=== PATIENT | male | born 1965 | race Caucasian/White ===

== ENCOUNTER 2021-06-30 06:33 | Day surgery (SDC) | payer OTHER ==
[2021-06-30] MEDS ORDERED: Lidocaine 2% Jelly 30 ML Tube ONE (06:36)
[2021-06-30] MEDS ORDERED: Bupivacaine 0.5% 50 ML MDV ONE (06:37)
[2021-06-30] MEDS ORDERED: Lidocaine 1% with EPINEPHrine 1:100,000 50 ML MDV ONE (06:37)
[2021-06-30] MEDS ORDERED: Sodium Chloride 0.9% 1,000 ML IV SCH (07:00)
[2021-06-30] MEDS ORDERED: fentaNYL 100 MCG/2 ML SDV ONE (07:26)
[2021-06-30] MEDS ORDERED: Propofol 200 MG/20 ML SDV ONE (07:26)
[2021-06-30] MEDS ORDERED: Midazolam 1 MG/ML 2 ML SDV ONE (07:26)
[2021-06-30] MEDS ORDERED: cefOXitin 2 GM in Sodium Chloride 0.9% 50 ML IV ONE (07:30)
[2021-06-30] MEDS ORDERED: metroNIDAZOLE/Normal Saline 500 MG in Premix Bag 1 BAG IV ONE (07:30)
== END 2021-06-30 09:17 | disposition home or self-care (01) ==
LOC: JP.SDS 06:33
PROVIDERS: ATTEND Surgery
DX: K64.8 Other hemorrhoids (principal); K64.4 Residual hemorrhoidal skin tags; K62.89 Other specified diseases of anus and rectum; Z91.013 Allergy to seafood
CPT/HCPCS: 46221; 88304; J0690; J2250; J2704; J3010; J3490; J7030